=== PATIENT | male | born 1980 | race Caucasian/White ===

== ENCOUNTER 2019-12-24 13:35 | Emergency (ER) | payer BC ==
[2019-12-24 13:46] VITALS: PULSE 88
--- NOTE | 2019-12-24 14:01 | EDM.PDOC ---
ED HPI GENERAL MEDICAL PROBLEM - General Chief Complaint: General Stated Complaint: R ANKLE PAIN Time Seen by Provider: 12/24/19 13:55 Source of Information: Reports: Patient, Old Records ([facility] chart/EMR) History Limitations: Reports: No Limitations - History of Present Illness INITIAL COMMENTS - FREE TEXT/NARRATIVE: The patient drove himself to the emergency room via private automobile for 4/10 distal right leg and ankle pain after slipping on the ice in [place] parking lot at about 11:30 a.m. with no previous injury to this ankle or leg. He denies any head injury, loss of consciousness, neck/back pain, neurological deficits, or other complaints or injuries. He did place an Richard wrap and ice packs on the ankle prior to arrival. The patient denies any chest pain/pressure, heart flutter, dizziness, orthostasis, orthopnea, diaphoresis, paresthesias, recent decreased exercise tolerance, or any other anginal-type symptoms. No recent history of abdominal pain, heartburn, nausea, diarrhea, melena, gross hematochezia, or any food intolerance, including fatty foods, etc.. The patient also denies any recent fever, cough, wheezing, dyspnea, etc.. Onset: Today, Sudden Onset Date: 12/24/19 Onset Time: 11:30 Duration: Constant Location: Reports: Lower Extremity, Right. Denies: Head, Face, Neck, Chest, Abdomen, Back, Pelvis, Upper Extremity, Left, Upper Extremity, Right, Lower Extremity, Left, Radiates to Quality: Reports: Ache, Sharp Severity: Moderate Improves with: Reports: Rest Worsens with: Reports: Movement Context: Reports: Trauma Associated Symptoms: Reports: No Other Symptoms. 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 [No Known Home Meds] 12/24/19 [History] Past Medical History HEENT History: Reports: Otitis Media, Other (See Below) Other HEENT History: Recurrent otitis media with surgery as below. Caries. Respiratory History: Reports: Bronchitis, Recurrent, Other (See Below) Other Respiratory History: Reactive airway disease with infection. Musculoskeletal History: Reports: Arthritis, Fracture, Gout, Osteoarthritis, Other (See Below) Other Musculoskeletal History: Left mid tibial/fibular fracture in about 2003. Right mid humeral fracture at age 15. - Past Surgical History HEENT Surgical History: Reports: Adenoidectomy, Oral Surgery, Tonsillectomy, Other (See Below) Other HEENT Surgeries/Procedures: Multiple teeth extractions. Tonsillectomy and adenoidectomy at about age 8. Bilateral pleural effusions 2 at about age 6. Musculoskeletal Surgical History: Reports: Arthroscopic Knee, Other (See Below) Other Musculoskeletal Surgeries/Procedures:: Left meniscal repair in about 2011. - Past Imaging History Past Imaging History: Reports: CAT Scan (CT of the head on 11/21/11.) Social & Family History - Tobacco Use Smoking Status *Q: Current Every Day Smoker Tobacco Use Within Last Twelve Months: Cigarettes Years of Tobacco use: 21 Packs/Tins Daily: 1 Packs/Tins Daily Comment: Started smoking at age 18. Used Tobacco, but Quit: Yes Smoking Cessation Information Provided To Patient: Yes Second Hand Smoke Exposure: Yes Source of Second Hand Smoke Exposure: smokes. Second Hand Smoke Education Provided: Yes - Caffeine Use Caffeine Use: Reports: Soda (12 Mountain Dew per day). Denies: Coffee, Energy Drinks, Tea - Alcohol Use Alcohol Use History: Yes Days Per Week of Alcohol Use: 0 Number of Drinks Per Day: 3 Number of Drinks Per Day Comment: Usually hard liquor on a monthly basis in the summer with no previous DWIs or problems with alcohol abuse, etc. 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 ED EXAM, GENERAL - Physical Exam Exam: See Below Exam Limited By: No Limitations General Appearance: Alert, WD/WN, No Apparent Distress Head: Atraumatic, Normocephalic. No: Facial Swelling, Facial Tenderness, Sinus Tenderness Neck: Normal Inspection, Supple, Non-Tender, Full Range of Motion. No: Lymphadenopathy (L), Lymphadenopathy (R), Thyromegaly Respiratory/Chest: No Respiratory Distress, Lungs Clear, Normal Breath Sounds, No Accessory Muscle Use, Chest Non-Tender. No: Pleural Rub, Retractions Cardiovascular: Normal Peripheral Pulses, Regular Rate, Rhythm, No Edema, No Gallop, No JVD, No Murmur, No Rub. No: Gallop/S3, Gallop/S4, Friction Rub Peripheral Pulses: 2+: Radial (L), Radial (R), Dorsalis Pedis (L), Dorsalis Pedis (R) GI/Abdominal: Normal Bowel Sounds, Soft, Non-Tender, No Organomegaly, No Distention, No Abnormal Bruit, No Mass, Pelvis Stable, Other (Obese). No: Guarding (Male) Exam: Deferred Rectal (Males) Exam: Deferred Back Exam: Normal Inspection, Full Range of Motion. No: CVA Tenderness (L), CVA Tenderness (R), Muscle Spasm Extremities: No Pedal Edema, Normal Capillary Refill, Joint Swelling (Moderate right lateral malleolar swelling), Leg Pain (Moderate palpation pain over the right lateral malleolus extending to the distal fibular region), Limited Range of Motion (Secondary to pain). No: William's Sign, Increased Warmth Neurological: Alert, Oriented, CN II-XII Intact, Normal Cognition, Normal Gait, Normal Reflexes, No Motor/Sensory Deficits Psychiatric: Normal Affect, Normal Mood Skin Exam: Warm, Dry, Intact, Normal Color, No Rash. No: Diaphoretic, Ecchymosis, Wound/Incision Lymphatic: No Adenopathy ED GENERAL MEDICAL PROCEDURES - Splinting Right Lower Extremity Splint Site: Right distal leg Pre-procedure NV status: Normal Post-procedure NV status: Normal Splint Material: Fiberglass Splint Design: Stirrup, Posterior, Other Applied & Form Fitted By: Provider Provider Post-Splint Application NV Check: NV Status Normal Complications: Yes Progress/Comments: A padded 4" x 15" fiberglass splint was used as a plantar posterior splint with an additional 5" x 30" fiberglass splint used as a stirrup splint. Splints were secured with #3 6 inch Richard wraps Course - Vital Signs Last Recorded V/S: Last Vital Signs Temp 37.2 C 12/24/19 13:35 Pulse 88 12/24/19 13:35 Resp 16 12/24/19 13:35 BP 145/75 H 12/24/19 14:01 Pulse Ox 96 12/24/19 13:35 Vital Signs - 24 hr 12/24/19 12/24/19 13:35 14:01 Temperature [ 37.2 C Temporal] Pulse, 88 Peripheral [ Pulse Oximetry] Respiratory 16 Rate Blood Pressure 163/78 H 145/75 H [Left Arm] O2 Sat by Pulse 96 Oximetry - Orders/Labs/Meds Orders: Active Orders 24 hr Category Date Time Status Influenza Vaccine Charge [RC] .DISCHARGE Care 12/24/19 15:03 Ordered Ankle Min 3V Rt [CR] Stat Exams 12/24/19 14:02 Ordered Pharmacy to Dose - InFluenza V [Pharmacy to Dose - Med 12/24/19 15:03 Once InFluenza Vaccine] 1 each IM ONETIME ONE Durable Medical Equipment for Discharge [DME for Oth 12/24/19 14:34 Ordered Discharge] [COMM] Routine Obtain Past Medical Record [OM.PC] Routine Oth 12/24/19 14:01 Active Labs: None Meds: None - Radiology Interpretation Free Text/Narrative:: X-rays of the right ankle, complete, shows evidence of a mildly displaced distal fibular fracture with evidence of a torus distal third fibular injury. Ankle mortise appears intact. Otherwise stable osteoarthritic changes. Note x- ray report indicates that above distal third fibular changes represent a remote injury, however this does not match clinical presentation and/or clinical history. Departure - Departure Time of Disposition: 15:25 Disposition: Home, Self-Care 01 Condition: Good Clinical Impression: Elevated blood pressure reading, Tobacco abuse counseling, Osteoarthritis, Hyperuricemia, Fracture of distal fibula - Discharge Information *PRESCRIPTION DRUG MONITORING PROGRAM REVIEWED*: Not Applicable *COPY OF PRESCRIPTION DRUG MONITORING REPORT IN PATIENT SKYLAR: Not Applicable Instructions: Crutch Use, Adult, [id number], Nondisplaced Fibular Ankle Fracture Treated With Immobilization, Adult, Health Risks of Smoking, Cast or Splint Care, Adult, [id number] Referrals: PCP,None [Primary Care Provider] - Forms: ED Department Discharge Additional Instructions: 1. Followup with the orthopedic surgeon, Dr. Garza at [facility], 12/31/19 at 9:40 a.m. as directed for reevaluation, repeat x-rays, and probable permanent leg cast placement. Arrive about 30 minutes prior to that appointment for registration, etc. Bring these discharge instructions with you to that visit. 2. Tylenol 650 mg by mouth every 4 hours and/or OTC ibuprofen 2-3 tabs by mouth every 6 hours with food as directed./needed. You may stagger these medications for 48-72 hours only, which essentially means that you are receiving a pain medication about every 2 hours. 3. Leg elevation and/or ice packs as directed. 4. Activity as tolerated, including strict non-weightbearing, splint therapy, and crutches use until otherwise directed by your orthopedic surgeon and/or regular providers as discussed. 5. Stop all tobacco use NELLA as directed/per provided information and consider contacting Quit LIne, etc.. 6. Immediately after this visit verify that your cellular telephone's voicemail has been activated and is empty. Also verify that your home telephone 's answering machine is operating properly and has space to receive messages. Note that it is sometimes necessary for us to be able to contact you at a later date to discuss your medical care. 7. Please remember that we are ALWAYS here for you and want to answer any questions you may have. Feel free to call the hospital any time and we call you back NELLA. 8. Continue to observe your blood pressures closely through your regular provider. Sepsis Event Note - Evaluation Sepsis Screening Result: No Definite Risk - Focused Exam Vital Signs: Vital Signs Temp Pulse Resp BP Pulse Ox 12/24/19 14:01 145/75 H 12/24/19 13:35 37.2 C 88 16 163/78 H 96 Date Exam was Performed: 12/24/19 Time Exam was Performed: 15:03 - Problem List & Annotations (1) Fracture of distal fibula SNOMED Code(s): 894058064 Code(s): S82.839A - OTH FRACTURE OF UPPER AND LOWER END OF UNSP FIBULA, INIT Status: Acute Priority: High Current Visit: Yes Annotation/Comment:: Note that patient has not injured this ankle or fibula in the past. Evidence of an acute torus injury by my evaluation of the patient and x-rays as above. Secondary to suspicions of possible tibial fibular interosseal ligamental injury I did have a telephone consultation at 14:[address] Garza, orthopedic surgeon at [facility] in [place], who does agree to evaluate the patient in about one week, with no further treatment recommendations given. I did set up a follow-up appointment with the patient with Dr. Garza as per discharge instructions. Activity restrictions were extensively discussed. He does not need a work excuse. Qualifiers: Encounter type: initial encounter Fracture type: closed Fracture morphology: torus Laterality: right Qualified Code(s): S82.821A - Torus fracture of lower end of right fibula, initial encounter for closed fracture (2) Elevated blood pressure reading SNOMED Code(s): 56674824 Code(s): R03.0 - ELEVATED BLOOD-PRESSURE READING, W/O DIAGNOSIS OF HTN Status: Acute Priority: Medium Current Visit: Yes Onset Date: 12/24/19 Annotation/Comment:: He does drink a significant amount of caffeine as above and was advised to decrease caffeine use and was counseled on how to taper his soda intake during this visit. Close follow-up of his blood pressures by his regular provider, although the patient does not normally have routine preventive care. Influenza booster was given during today's evaluation and further preventive health care also encouraged. He also needs to follow-up with his dentist secondary to poor dentition. (3) Hyperuricemia SNOMED Code(s): 24451903 Code(s): E79.0 - HYPERURICEMIA W/O SIGNS OF INFLAM ARTHRIT AND TOPHACEOUS DIS Status: Chronic Priority: Medium Current Visit: Yes Annotation/ Comment:: No recent gout attacks with no current medical therapy. (4) Osteoarthritis SNOMED Code(s): 653996586 Code(s): M19.90 - UNSPECIFIED OSTEOARTHRITIS, UNSPECIFIED SITE Status: Acute Priority: Medium Current Visit: Yes Annotation/Comment:: Otherwise stable by history with no other injuries secondary to today's fall. Qualifiers: Osteoarthritis location: multiple joints Osteoarthritis type: primary Qualified Code(s): M15.0 - Primary generalized (osteo)arthritis (5) Tobacco abuse counseling SNOMED Code(s): 136316158, 399187901, 307659830 Code(s): Z71.6 - TOBACCO ABUSE COUNSELING Status: Chronic Priority: Medium Current Visit: Yes Annotation/Comment:: Tobacco cessation strongly encouraged both for the patient and his . Tobacco cessation information was provided. Note history of reactive airway disease with previous bronchitis consideration of PFTs, etc. depending on his clinical course. - Problem List Review Problem List Initiated/Reviewed/Updated: Yes - My Orders Last 24 Hours: My Active Orders 12/24/19 14:01 Obtain Past Medical Record [OM.PC] Routine 12/24/19 14:02 Ankle Min 3V Rt [CR] Stat 12/24/19 14:34 Durable Medical Equipment for Discharge [DME for Discharge] [COMM] Routine 12/24/19 15:03 Influenza Vaccine Charge [RC] .DISCHARGE Pharmacy to Dose - InFluenza V [Pharmacy to Dose - InFluenza Vaccine] 1 each IM ONETIME ONE - Assessment/Plan Last 24 Hours: My Active Orders 12/24/19 14:01 Obtain Past Medical Record [OM.PC] Routine 12/24/19 14:02 Ankle Min 3V Rt [CR] Stat 12/24/19 14:34 Durable Medical Equipment for Discharge [DME for Discharge] [COMM] Routine 12/24/19 15:03 Influenza Vaccine Charge [RC] .DISCHARGE Pharmacy to Dose - InFluenza V [Pharmacy to Dose - InFluenza Vaccine] 1 each IM ONETIME ONE Assessment:: As above Plan: As above. Extensive precautions were given to the patient, who is in agreement with the treatment plan. See Patient Instructions for further treatment and plan.
[2019-12-24 14:02] VITALS: BP 145/75
[2019-12-24] MEDS ORDERED: FLU Vacc QS2019-20(6MOS+)/PF 60 MCG/0.5 ML SYRINGE IM ONE (15:15)
== END 2019-12-24 15:25 | disposition home or self-care (01) ==
LOC: LL.ED 13:35
DX: S82.821A Torus fracture of lower end of right fibula, initial encounter for closed fracture (principal); R03.0 Elevated blood-pressure reading, without diagnosis of hypertension; M19.90 Unspecified osteoarthritis, unspecified site; E79.0 Hyperuricemia without signs of inflammatory arthritis and tophaceous disease; F17.210 Nicotine dependence, cigarettes, uncomplicated; Z23 Encounter for immunization; W00.0XXA Fall on same level due to ice and snow, initial encounter; Y92.481 Parking lot as the place of occurrence of the external cause
CPT/HCPCS: 29515; 73610-RT; 90686; 99283-25; G0008